=== PATIENT | male | born 1955 | race Caucasian/White ===

== ENCOUNTER 2016-10-02 18:37 | Emergency (ER) | payer OTHER ==
[2016-10-02 19:05] VITALS: BP 140/83
--- NOTE | 2016-10-02 19:18 | ED PDOC ---
Arrival/HPI - General Time Seen by Provider: 10/02/16 18:40 Historian: Patient - History of Present Illness Narrative History of Present Illness (Text): 10/02/16 19:04 A 60 year old male with no significant past medical history, presents to the emergency department after waking up early this morning at around 5am and had persistent chest discomfort that lasted for 5 hrs. The patient said that the pain was a poking sensation. He noticed that the pain became worse when he moved his arm. He notes that the pain has resolved and has not returned since. He states he occasionally gets sensation of heart beating when he eats and has had that for months. He otherwise denies any pain on exertion. The patient denies dizziness, diaphoresis, shortness of breath, chest pain on exertion, headache, fevers, chills, nausea, vomiting, diarrhea, or any other complaint. Time/Duration: Other (Today) Symptom Onset: Sudden Symptom Course: Improving Activities at Onset: Rest, Light Context: Home Past Medical History - Provider Review Nursing Documentation Reviewed: Yes Family/Social History - Physician Review Nursing Documentation Reviewed: Yes Family/Social History: No Known Family HX Allergies/Home Meds Allergies/Adverse Reactions: Allergies No Known Allergies Allergy (Verified 10/02/16 19:01) Home Medications: Home Meds Medication Instructions Recorded Confirmed Unobtainable 10/02/16 10/02/16 Review of Systems - Physician Review All systems were reviewed & negative as marked: Yes - Review of Systems Constitutional: absent: Fevers Respiratory: absent: SOB Cardiovascular: Chest Pain. absent: HUTTON Gastrointestinal: absent: Abdominal Pain, Nausea Neurological: absent: Headache, Dizziness Endocrine: absent: Diaphoresis Physical Exam Vital Signs Temp Pulse Resp BP Pulse Ox 10/02/16 19:05 98 F 65 16 140/83 98 Temperature: Afebrile Blood Pressure: Normal Pulse: Regular Respiratory Rate: Normal Appearance: Positive for: Well-Appearing, Non-Toxic, Comfortable Pain Distress: None Mental Status: Positive for: Alert and Oriented X 3 - Systems Exam Head: Present: Atraumatic, Normocephalic Pupils: Present: PERRL Conjunctiva: Present: Normal Mouth: Present: Moist Mucous Membranes Pharnyx: Present: Normal. No: ERYTHEMA, EXUDATE Neck: Present: Normal Range of Motion Respiratory/Chest: Present: Clear to Auscultation, Good Air Exchange. No: Respiratory Distress, Accessory Muscle Use Cardiovascular: Present: Regular Rate and Rhythm, Normal S1, S2. No: Murmurs Abdomen: Present: Normal Bowel Sounds. No: Tenderness, Distention, Peritoneal Signs Back: Present: Normal Inspection Upper Extremity: Present: Normal Inspection. No: Cyanosis, Edema Lower Extremity: Present: Normal Inspection. No: Edema Neurological: Present: GCS=15, CN II-XII Intact, Speech Normal Skin: Present: Warm, Dry, Normal Color. No: Rashes Psychiatric: Present: Alert, Oriented x 3, Normal Insight, Normal Concentration Medical Decision Making ED Course and Treatment: 10/02/16 16:54 Impression: A 60 year old male with persistent chest pain this morning that has resolved and has not returned since then. Differential Diagnosis included but are not limited to: ACS vs. Musculoskeletal pain vs. Anxiety vs. GERD Plan: -- Labs -- Chest X-ray -- Reassess and disposition Progress Notes: 10/02/16 16:54 EKG: Ordered, reviewed, and independently interpreted the EKG. Rate : 63 BPM Rhythm : NSR Interpretation : Normal interval. Normal axis. No ST/T changes. 10/02/16 21:55 CXR: nad as read by me. Patient with noted history of atypical chest pain early in the morning. EKG is normal with unremarkable labs, including normal CE. CXR is also unremarkable. Patient says he already made an appointment with a field artillery basic to be seen in one week. Patient with is not a diabetic, hypertensive, or a smoker with no early cardiac in family history. Given normal EKG and normal labs with atypical symptoms and no risk factors (besides being a male), and good follow up (field artillery basic appointment already made), patient may be discharged to follow up with cardiology. - Lab Interpretations Lab Results: 10/02/16 19:31 10/02/16 19:31 Lab Results 10/02/16 19:31: Sodium 140, Potassium 4.3, Chloride 99, Carbon Dioxide 30, Anion Gap 15, BUN 19, Creatinine 1.0, Est GFR ( Amer) > 60, Est GFR (Non- Af Amer) > 60, Random Glucose 114 H, Calcium 9.3, Magnesium 2.0, Total Bilirubin 0.6, AST 24, ALT 31, Alkaline Phosphatase 67, Lactate Dehydrogenase 447, Total Creatine Kinase 103, Troponin I < 0.01, Total Protein 7.2, Albumin 4.3, Globulin 2.9, Albumin/Globulin Ratio 1.5, Triglycerides 278 H, Cholesterol 197, LDL Cholesterol Direct 136 H, HDL Cholesterol 34, Lipase 91 10/02/16 19:31: PT 11.4, INR 1.06, APTT 25.7 10/02/16 19:31: WBC 4.7, RBC 5.11, Hgb 15.2, Hct 42.4, MCV 83.0, MCH 29.7, MCHC 35.8, RDW 12.7, Plt Count 146, MPV 9.8, Gran % 65.5, Lymph % (Auto) 22.4, [place] % (Auto) 8.3 H, Eos % (Auto) 3.6, Baso % (Auto) 0.2, Gran # 3.07, Lymph # 1.1 L , [place] # 0.4, Eos # 0.2, Baso # 0.01 I have reviewed the lab results: Yes - RAD Interpretation Radiology Orders: 10/02/16 19:16 CHEST TWO VIEWS (PA/LAT) [RAD] Stat - EKG Interpretation Interpreted by ED Physician: Yes Type: 12 lead EKG - Scribe Statement The provider has reviewed the documentation as recorded by the Maik Carlisle Provider Scribe Attestation: All medical record entries made by the Scribe were at my direction and personally dictated by me. I have reviewed the chart and agree that the record accurately reflects my personal performance of the history, physical exam, medical decision making, and the department course for this patient. I have also personally directed, reviewed, and agree with the discharge instructions and disposition. Disposition/Present on Arrival - Present on Arrival Any Indicators Present on Arrival: No - Disposition Have Diagnosis and Disposition been Completed?: Yes Diagnosis: Atypical chest pain Disposition: HOME/ ROUTINE Disposition Time: 21:50 Patient Plan: Discharge Patient Problems: Current Active Problems Problem Status Onset Atypical chest pain Acute Condition: GOOD Discharge Instructions (ExitCare): Chest Pain (ED) Additional Instructions: Follow up with your field artillery basic as scheduled. Return to the emergency department if any new concerning symptoms.
[2016-10-02 19:41] LABS: BASO # 0.01 K/mm3 (0.0-2.0); BASO % 0.2 % (0.0-3.0); EOS # 0.2 (0.0-0.7); EOS % 3.6 % (1.5-5.0); GRAN # 3.07 (1.4-6.5); GRAN % 65.5 % (50.0-68.0); HEMOGLOBIN 15.2 g/dL (14.0-18.0); LYMPH # 1.1 (1.2-3.4); LYMPH % 22.4 % (22.0-35.0); MEAN CORPUSCULAR HEMOGLOBIN 29.7 pg (25.0-35.0); MEAN CORPUSCULAR HGB CONC 35.8 g/dl (31.0-37.0); MEAN PLATELET VOLUME 9.8 fl (7.0-11.0); MONO # 0.4 (0.1-0.6); MONO % 8.3 % (1.0-6.0); PLATELET COUNT 146 10^3/uL (120.0-450.0); RBC 5.11 10^6/uL (3.5-6.1); RED CELL DISTRIBUTION WIDTH 12.7 % (11.5-14.5); WHITE BLOOD COUNT 4.7 10^3/ul (4.5-11.0)
[2016-10-02 20:01] LABS: ALB/GLOB RATIO 1.5 (1.1-1.8); ALBUMIN 4.3 g/dL (3.0-4.8); ALT/SGPT 31 U/L (7-56); AST/SGOT 24 U/L (15-59); BLOOD UREA NITROGEN 19 mg/dL (7-21); CALCIUM 9.3 mg/dL (8.4-10.5); GFR AFRICAN-AMERICAN > 60; GFR NON-AFRICAN AMERICAN > 60; HDL CHOLESTEROL 34 mg/dL (29-60); LIPASE 91 U/L (23-300)
[2016-10-02 20:09] LABS: INR 1.06 (0.93-1.08); PARTIAL THROMBOPLASTIN TIME 25.7 Seconds (23.7-30.8); PROTHROMBIN TIME 11.4 Seconds (9.9-11.8)
[2016-10-02 20:12] LABS: LDL CHOLESTEROL 136 mg/dL (0-129)
[2016-10-02 20:34] LABS: TROPONIN I < 0.01 ng/mL
[2016-10-02 22:32] VITALS: O2SAT 99
[2016-10-02 22:33] VITALS: PULSE 69; RESP 16; TEMP 98.2
--- NOTE | 2016-10-03 08:19 | RAD ---
HISTORY: cp COMPARISON: No prior. TECHNIQUE: Chest PA and lateral FINDINGS: LUNGS: No active pulmonary disease. PLEURA: No significant pleural effusion identified. No pneumothorax apparent. CARDIOVASCULAR: Normal. OSSEOUS STRUCTURES: No significant abnormalities. VISUALIZED UPPER ABDOMEN: Normal. OTHER FINDINGS: None. IMPRESSION: No active disease.
--- NOTE | 2016-10-04 01:12 | CARD ---
APPROVED REPORT EKG Measurement Heart [id number] TN [id number] <Conclusion> Normal sinus rhythm Normal ECG
== END 2016-10-02 22:33 | disposition home or self-care (01) ==
LOC: ED 18:37
DX: R07.89 Other chest pain (principal)